=== PATIENT | female | born 1990 | race Caucasian/White ===

== ENCOUNTER → 2019-09-27 15:17 | Outpatient (CLI) | payer OTHER, SELFPAY ==
[2017-01-21 07:46] VITALS: BMI 31.0
[2019-09-29 18:08] LABS: HPV Reflexed? NOT INDICATED
== END ==
PROVIDERS: PCP Family Medicine; Referring Provider Obstetrics & Gynecology; Visit Provider Obstetrics & Gynecology
DX: Z12.4 Encounter for screening for malignant neoplasm of cervix (principal)
CPT/HCPCS: 88175; G0145

== ENCOUNTER 2023-02-03 11:02 | Emergency (ER) | payer OTHER, SELFPAY ==
[2023-02-03 11:04] VITALS: BP 108/97; PULSE 89; RESP 18; TEMP 36.2; O2SAT 100; BMI 33.3
--- NOTE | 2023-02-03 11:28 | EX.ED.DYSGE1 ---
HPI History of Present Illness Chief Complaint: Numb/Ting PFSH PFSH Home Medications folic acid 1 mg tablet 1 mg PO DAILY 01/21/17 [History Last Taken 01/20/17] vits,calcium no.78-iron fumarate-folic acid 29 mg-1 mg tablet (Prenatabs FA) 1 tab PO DAILY 01/21/17 [History Last Taken 01/20/17] Ibuprofen [Motrin] 800 mg PO TID PRN PRN pain or cramping #30 tabs 01/23/17 [Rx Last Taken Unknown] dibucaine 1 % topical ointment 1 applic topical 4X/DAY PRN PRN Pain #1 tube 01/24/17 [Rx Last Taken Unknown] Allergy/AdvReac Type Severity Reaction Status Date / Time No Known Allergies Allergy Verified 02/03/23 11:04 Social History Smoking Status: Never smoker EXAM Physical Exam Const Vital Signs: 02/03/23 11:04 Temperature 97.2 F L Temperature Source Temporal Pulse Rate 89 Respiratory Rate 18 Blood Pressure 108/97 H Blood Pressure Mean 100 Pulse Ox 100 Oxygen Delivery Method Room Air MDM MDM MDM Narrative Medical decision making narrative: ED attending note: I evaluated the patient in conjunction with the SHEYLA. I agree with his/her statements and above findings. I have personally performed a face to face assessment of the patient and have reviewed the SHEYLA Note. I performed a substantive portion of the visit including all aspects of the following. I personally saw the patient performed chart review, physical exam, reviewed labs, imaging (if obtained), and formulated a treatment and management plan. Brief history: 32-year-old female here with numbness and tingling left arm for 2 days as well as a headache. Exam: Nursing triage notes reviewed, Vital signs reviewed Constitutional: please see mdm HENT: MMM Eyes: Pupils equal round and reactive to light, Extraocular muscles intact, visual stubbs intact, visual acuity 25/20 bilaterally Neck: No stridor, no JVD, full neck ROM Lungs: Clear to auscultation, No wheezing or rales. No increased work of breathing, no conversational dyspnea, no accessory muscle use, no nasal flaring. No respiratory distress noted Heart: Regular rate and rhythm, No murmurs, No rubs and No gallops, 2+ distal pulses (radial, femoral, posterior tibial) in all extremities Abdomen: Soft, there is no tenderness, rigidity, rebound or guarding, no obvious peritoneal signs, no palpable pulsatile abdominal masses, no auscultated abdominal bruit : No CVAT Extremities: No edema Neuro: Alert and oriented x3, neuro exam at baseline, cranial nerves II through XII are intact. No pain with extraocular muscle movement. There is negative test of skew. 5 of 5 strength in upper and lower extremities in flexion extension. Intact sensation to light touch in upper and lower extremity dermatomes. No truncal or extremity ataxia. No dysdiadochokinesia. Normal gait. 2+ reflexes in upper and lower extremities. No meningeal signs. Negative Babinski. NIH of 0. Skin: No rash or lesions noted MDM/plan: Chief Complaint: Numbness tingling, headache External records reviewed: No recent [facility] imaging of the brain noted, no recent ED visits or hospitalizations noted in our medical record Factors affecting care: None Social determinants of health: none History obtained from others: The patient's Consults: None MDM narrative: The patient was hemodynamically stable, afebrile, nontoxic-appearing. No focal neurologic deficits noted on exam. NIH of 0 EKG with normal sinus rhythm, normal axis, normal intervals, no STEMI. I considered the following differential diagnosis: ICH, CVA, TIA, seizure, complex migraine CT scan of the head rule out bleed or mass. Clinically not consistent with CVA or seizure. Low suspicion for TIA given lack of risk factors such as age, hyperlipidemia hypertension. Will treat with migraine medicine. We will dispo based on results of CT scan and repeat neurologic assessment and shared decision making. CT scan is negative patient is appropriate for discharge home with close outpatient follow-up for possible outpatient MRI for further assessment Shared decision making: I will have a discussion with the patient and or visitors regarding risk/benefits of further testing or admission. They will be made aware of of the risk/benefits inherent in this decision they will be given the opportunity to voice understanding. Lab Data Labs: Laboratory Results - last 24 hr 02/03/23 12:20 WBC 6.5 RBC 5.35 Hgb 15.2 H Hct 46.3 MCV 86.5 MCH 28.4 MCHC 32.8 RDW Std Deviation 38.3 RDW Coeff of Boo 12.1 Plt Count 339 MPV 8.4 Immature Gran % (Auto) 0.200 Neut % (Auto) 73.1 H Lymph % (Auto) 20.0 [place] % (Auto) 6.3 Eos % (Auto) 0.2 Baso % (Auto) 0.2 Absolute Neuts (auto) 4.8 Absolute Lymphs (auto) 1.30 Nucleated RBC % 0 Sodium 137 Potassium 4.1 Chloride 105 Carbon Dioxide 29.0 Anion Gap 3 L BUN 10 Creatinine 0.79 Estim Creat Clear Calc 105.04 Est GFR (MDRD) Af Amer 109 Est GFR (MDRD) Non-Af 90 BUN/Creatinine Ratio 12.6 Glucose 104 Calcium 9.7 Urine Test Negative Radiography Diagnostic Testing: Clinical Impression(s) from Imaging Studies Brain CT 02/03/23 11:35 IMPRESSION: Normal unenhanced CT scan of the brain. Electronically Signed: Matthew Diallo MD at 12:49 EDT , Discharge Plan Triage Chief Complaint: Numb/Ting Other Complaint: Headache ED Midlevel Provider: Priscilla Begum ED Provider: Josef Mendez Dx/Rx/DC Orders Prescriptions: No Action folic acid 1 MG tablet 1 mg PO DAILY vit,[id number] [Prenatabs FA] 1 TABLET tablet 1 tab PO DAILY Ibuprofen [Motrin] 800 MG tablet 800 mg PO TID PRN PRN (Reason: pain or cramping) Qty: 30 1RF dibucaine 1 APPLIC ointment 1 applic topical 4X/DAY PRN PRN (Reason: Pain) Qty: 1 3RF Primary Care Provider: Care Physician,No Primary Referrals: Jonathan Suarez MD [Non-Staff] -
--- NOTE | 2023-02-03 11:35 | CT_ITS ---
STUDY: CT BRAIN WITHOUT CONTRAST REASON FOR EXAM: Female, 32 years old. Headache, visual deficit RADIATION DOSAGE (If Supplied By Facility): CTDIvol = ( 44.99 ) mGy, DLP = ( 745.49 ) mGycm TECHNIQUE: Transaxial CT imaging of the brain was performed without administration of intravenous contrast material. Individualized dose optimization techniques were used for this CT. COMPARISON: No relevant priors. FINDINGS: Normal soft tissue structures. Normal calvarium. Normal size ventricles and extra-axial spaces for the patient''s age. Normal white matter tracts of the cerebral hemispheres. Normal basal ganglia and thalami. Normal brainstem. Normal cerebellum. There is no intracranial hemorrhage. There are no findings of an acute ischemic infarction. Normal visualized paranasal sinuses. CT/Brain/Head without Contrast IMPRESSION: Normal unenhanced CT scan of the brain. Electronically Signed: Matthew Diallo MD at 12:49 EDT ,
--- NOTE | 2023-02-03 11:37 | EDS_ITS ---
HPI <LORENA Rodriguez - Last Filed: 02/03/23 14:11> History of Present Illness Chief Complaint: Numb/Ting Narrative Narrative: Patient presenting today due to a headache with visual field deficit that started yesterday. She reports that she does have a history of headaches but yesterday she noticed that her vision became blurry and the lateral stubbs of her vision seemed to be gone. She felt fatigued and lightheaded. This lasted for about 10 to 15 minutes and then resolved, she had about 3 or 4 episodes of this yesterday, all with a headache. She had 2 episodes of similar symptoms this morning. She reports that a similar episode occurred 6 months ago when she had a headache. She has never been evaluated for this. She also reports that her left upper arm has had pain and tingling constantly since Wednesday evening. She denies any head trauma, seizures, fevers, chills, abdominal pain, nausea, vomiting. PFSH <LORENA Rodriguez - Last Filed: 02/03/23 14:11> [facility] Home Medications folic acid 1 mg tablet 1 mg PO DAILY 01/21/17 [History Last Taken 01/20/17] vits,calcium no.78-iron fumarate-folic acid 29 mg-1 mg tablet (Prenatabs FA) 1 tab PO DAILY 01/21/17 [History Last Taken 01/20/17] Ibuprofen [Motrin] 800 mg PO TID PRN PRN pain or cramping #30 tabs 01/23/17 [Rx Last Taken Unknown] dibucaine 1 % topical ointment 1 applic topical 4X/DAY PRN PRN Pain #1 tube 01/24/17 [Rx Last Taken Unknown] Allergy/AdvReac Type Severity Reaction Status Date / Time No Known Allergies Allergy Verified 02/03/23 11:04 Social History Smoking Status: Never smoker ROS <LORENA Rodriguez - Last Filed: 02/03/23 14:11> ROS ED Constitutional Constitutional ED: Denies chills or fever(s) Eyes Eyes: Reports blurry vision and change in vision; Denies diplopia Cardiovascular Cardiovascular: Denies chest pain or palpitations Respiratory/Chest Respiratory/Chest: Denies cough or dyspnea Gastrointestinal Gastrointestinal: Denies abdominal pain, nausea or vomiting Musculoskeletal Musculoskeletal: Denies arthralgias or myalgias Integumentary Denies rash Neurologic Neurologic: Reports headache(s) and paresthesias LUE; Denies confusion, dizziness or weakness Psychiatric Psychiatric: Denies anxiety, depression, suicidal ideation or suicidal thoughts Allergic/Immunologic Allergic/Immunologic ED: Denies lip swelling, mouth swelling or urticaria EXAM <LORENA Rodriguez - Last Filed: 02/03/23 14:11> Physical Exam Const Vital Signs: 02/03/23 11:04 02/03/23 13:23 Temperature 97.2 F L Temperature Source Temporal Pulse Rate 89 Respiratory Rate 18 16 Blood Pressure 108/97 H Blood Pressure Mean 100 Pulse Ox 100 Oxygen Delivery Method Room Air Positive well nourished, well developed and no apparent distress General Appearance ED: well developed HEENT Reports normocephalic and head/scalp atraumatic Mouth ED: Yes moist mucous membranes normal Eyes PERRL and EOMs intact bilaterally Neck full ROM and supple Chest Wall inspection of chest normal Resp normal respiratory effort and clear to auscultation bilaterally Cardio regular rate and regular rhythm GI soft to palpation, non-tender, non-distended and no masses Back/Spine normal ROM and normal to inspection Extremity normal to inspection and full ROM Neuro oriented x3, CN's II-XII intact bilaterally, moves all extremities, no focal motor deficits and no sensory deficits noted Neuro Narrative: Normal visual field test Sensorium / Orientation: awake and alert Coordination / Balance: [id number] test normal and [id number] test normal Speech: speech normal Gait (Neuro): normal gait Motor Exam: strength 5/5 throughout and no pronator drift Psych mental status grossly normal and thought process normal Skin no rashes or lesions noted and no wounds <Dr. Josef Mendez DO - Last Filed: 02/03/23 12:10> Physical Exam Const Vital Signs: 02/03/23 11:04 02/03/23 13:23 Temperature 97.2 F L Temperature Source Temporal Pulse Rate 89 Respiratory Rate 18 16 Blood Pressure 108/97 H Blood Pressure Mean 100 Pulse Ox 100 Oxygen Delivery Method Room Air MDM <LORENA Rodriguez - Last Filed: 02/03/23 14:11> MDM MDM Narrative Medical decision making narrative: Patient presenting today due to a headache and visual field deficit that she had this morning and yesterday. Started with a headache and then the lateral portion of her vision bilaterally seemed to be cut, this lasted for about 10 to 15 minutes and then resolved. She had about 3 or 4 episodes yesterday with 2 episodes today. She had a similar single episode about 6 months ago that resolved. She has never been evaluated for this. She reports that she still does have a headache but her vision is normal and intact. She is well-appearing and in no acute distress, vitals are unremarkable. Head CT will be obtained to rule out intracranial abnormality. Her neuro exam is WNL, normal visual field testing, NIH is 0. Head CT is unremarkable, basic labs unremarkable. EKG is normal sinus rhythm. At this point, I do suspect that she is suffering from a complex migraine or ocular migraines, I have encouraged her to follow-up with a neurologist and I have given her a referral for one. She will be discharged home in stable condition and is comfortable with plan. ED attending note: I evaluated the patient in conjunction with the SHEYLA. I agree with his/her statements and above findings. I have personally performed a face to face assessment of the patient and have reviewed the SHEYLA Note. I performed a substantive portion of the visit including all aspects of the following. I personally saw the patient performed chart review, physical exam, reviewed labs, imaging (if obtained), and formulated a treatment and management plan. Brief history: 32-year-old female here with headache, blurry vision, left arm pain. Patient denies sudden onset or thunderclap headache, denies maximal intensity within 1 minute, vomiting, neck pain, stiffness, changes in vision, fever, history malignancy, syncope, or seizures associated with headache. Exam: Nursing triage notes reviewed, Vital signs reviewed Constitutional: please see mdm HENT: MMM Eyes: Pupils equal round and reactive to light, Extraocular muscles intact Neck: No stridor, no JVD, full neck ROM Lungs: Clear to auscultation, No wheezing or rales. No increased work of breathing, no conversational dyspnea, no accessory muscle use, no nasal flaring. No respiratory distress noted Heart: Regular rate and rhythm, No murmurs, No rubs and No gallops, 2+ distal pulses (radial, femoral, posterior tibial) in all extremities Abdomen: Soft, there is no tenderness, rigidity, rebound or guarding, no obvious peritoneal signs, no palpable pulsatile abdominal masses, no auscultated abdominal bruit : No CVAT Extremities: No edema Neuro: Neuro exam Skin: No rash or lesions noted MDM/plan: Chief Complaint: Headache External records reviewed: No recent advanced imaging of the brain Factors affecting care: None MDM narrative: The patient was hemodynamically stable, afebrile, nontoxic appearing. There are no meningeal signs on exam. No focal neurologic deficits. No visual field cuts. I suspect patient is suffering from a complex migraine but did obtain a CT scan to rule out intracranial mass bleed or other abnormality. Discussed risk and benefits of CT and disfluency. I considered the following differential diagnosis: ICH, SAH, MS, complex migraine CT scan showed Consults: None Shared decision making: I will have a discussion with the patient and or visitors regarding risk/benefits of further testing or admission. They will be made aware of of the risk/benefits inherent in this decision they will be given the opportunity to voice understanding. Lab Data Attestation: I reviewed the patient's lab results. Labs: Laboratory Results - last 24 hr 02/03/23 12:20 WBC 6.5 RBC 5.35 Hgb 15.2 H Hct 46.3 MCV 86.5 MCH 28.4 MCHC 32.8 RDW Std Deviation 38.3 RDW Coeff of Boo 12.1 Plt Count 339 MPV 8.4 Immature Gran % (Auto) 0.200 Neut % (Auto) 73.1 H Lymph % (Auto) 20.0 [place] % (Auto) 6.3 Eos % (Auto) 0.2 Baso % (Auto) 0.2 Absolute Neuts (auto) 4.8 Absolute Lymphs (auto) 1.30 Nucleated RBC % 0 Sodium 137 Potassium 4.1 Chloride 105 Carbon Dioxide 29.0 Anion Gap 3 L BUN 10 Creatinine 0.79 Estim Creat Clear Calc 105.04 Est GFR (MDRD) Af Amer 109 Est GFR (MDRD) Non-Af 90 BUN/Creatinine Ratio 12.6 Glucose 104 Calcium 9.7 Urine Test Negative Radiography Diagnostic Testing: Clinical Impression(s) from Imaging Studies Brain CT 02/03/23 11:35 IMPRESSION: Normal unenhanced CT scan of the brain. Electronically Signed: Matthew Diallo MD at 12:49 EDT , EKG Initial EKG: Comments: 77 bpm, normal sinus rhythm, no ST elevation, reviewed and interpreted by attending ED physician <Dr. Josef Mendez, DO - Last Filed: 02/03/23 12:10> [facility] Narrative Medical decision making narrative: Patient presenting today due to a headache and visual field deficit that she had this morning and yesterday. Started with a headache and then the lateral portion of her vision bilaterally seemed to be cut, this lasted for about 10 to 15 minutes and then resolved. She had about 3 or 4 episodes yesterday with 2 episodes today. She had a similar single episode about 6 months ago that resolved. She has never been evaluated for this. She reports that she still does have a headache but her vision is normal and intact. She is well-appearing and in no acute distress, vitals are unremarkable. Head CT will be obtained to rule out intracranial abnormality. Her neuro exam is WNL, normal visual field testing, NIH is 0. ED attending note: I evaluated the patient in conjunction with the SHEYLA. I agree with his/her statements and above findings. I have personally performed a face to face assessment of the patient and have reviewed the SHEYLA Note. I performed a substantive portion of the visit including all aspects of the following. I personally saw the patient performed chart review, physical exam, reviewed labs, imaging (if obtained), and formulated a treatment and management plan. Brief history: 32-year-old female here with headache, blurry vision, left arm pain. Patient denies sudden onset or thunderclap headache, denies maximal intensity within 1 minute, vomiting, neck pain, stiffness, changes in vision, fever, history malignancy, syncope, or seizures associated with headache. Exam: Nursing triage notes reviewed, Vital signs reviewed Constitutional: [facility] HENT: MMM Eyes: Pupils equal round and reactive to light, Extraocular muscles intact Neck: No stridor, no JVD, full neck ROM Lungs: Clear to auscultation, No wheezing or rales. No increased work of breathing, no conversational dyspnea, no accessory muscle use, no nasal flaring. No respiratory distress noted Heart: Regular rate and rhythm, No murmurs, No rubs and No gallops, 2+ distal pulses (radial, femoral, posterior tibial) in all extremities Abdomen: Soft, there is no tenderness, rigidity, rebound or guarding, no obvious peritoneal signs, no palpable pulsatile abdominal masses, no auscultated abdominal bruit : No CVAT Extremities: No edema Neuro: Neuro exam Skin: No rash or lesions noted MDM/plan: Chief Complaint: Headache External records reviewed: No recent advanced imaging of the brain Factors affecting care: None MDM narrative: The patient was hemodynamically stable, afebrile, nontoxic appearing. There are no meningeal signs on exam. No focal neurologic deficits. No visual field cut s. I suspect patient is suffering from a complex migraine but did obtain a CT scan to rule out intracranial mass bleed or other abnormality. Discussed risk and benefits of CT and disfluency. I considered the following differential diagnosis: ICH, SAH, MS, complex migraine CT scan showed Consults: None Shared decision making: I will have a discussion with the patient and or visitors regarding risk/benefits of further testing or admission. They will be made aware of of the risk/benefits inherent in this decision they will be given the opportunity to voice understanding. Lab Data Labs: Laboratory Results - last 24 hr 02/03/23 12:20 WBC 6.5 RBC 5.35 Hgb 15.2 H Hct 46.3 MCV 86.5 MCH 28.4 MCHC 32.8 RDW Std Deviation 38.3 RDW Coeff of Boo 12.1 Plt Count 339 MPV 8.4 Immature Gran % (Auto) 0.200 Neut % (Auto) 73.1 H Lymph % (Auto) 20.0 [place] % (Auto) 6.3 Eos % (Auto) 0.2 Baso % (Auto) 0.2 Absolute Neuts (auto) 4.8 Absolute Lymphs (auto) 1.30 Nucleated RBC % 0 Sodium 137 Potassium 4.1 Chloride 105 Carbon Dioxide 29.0 Anion Gap 3 L BUN 10 Creatinine 0.79 Estim Creat Clear Calc 105.04 Est GFR (MDRD) Af Amer 109 Est GFR (MDRD) Non-Af 90 BUN/Creatinine Ratio 12.6 Glucose 104 Calcium 9.7 Urine Test Negative Radiography Diagnostic Testing: Clinical Impression(s) from Imaging Studies Brain CT 02/03/23 11:35 IMPRESSION: Normal unenhanced CT scan of the brain. Electronically Signed: Matthew Diallo MD at 12:49 EDT , Discharge Plan Triage Chief Complaint: Numb/Ting Other Complaint: Headache ED Midlevel Provider: Priscilla Begum ED Provider: Josef Mendez Dx/Rx/DC Orders Clinical Impression: Changes in vision, Headache Instructions: ED, Migraine (Classical) Prescriptions: No Action folic acid 1 MG tablet 1 mg PO DAILY vit,[id number] [Prenatabs FA] 1 TABLET tablet 1 tab PO DAILY Ibuprofen [Motrin] 800 MG tablet 800 mg PO TID PRN PRN (Reason: pain or cramping) Qty: 30 1RF dibucaine 1 APPLIC ointment 1 applic topical 4X/DAY PRN PRN (Reason: Pain) Qty: 1 3RF Primary Care Provider: Care Physician,No Primary Referrals: Jonathan Hong MD [Non-Staff -Ordering Privileges] - 5-7 Days Jonathan Suarez MD [Non-Staff] - Activity Restrictions/Additional Instructions: Please follow-up with your PCP as well as the neurologist I have referred you to. Return for any worsening of your symptoms. Disposition Disposition: Home, Self Care Discharge Date/Time: 02/03/23 13:24
--- NOTE | 2023-02-03 11:58 | EKG12_ITS ---
Test Reason : GENERAL Blood Pressure : / mmHG Vent. Rate : 077 BPM Atrial Rate : 077 BPM P-R Int : 148 ms QRS Dur : 082 ms QT Int : 374 ms P-R-T Axes : 040 034 011 degrees QTc Int : 423 ms Normal sinus rhythm Normal ECG Confirmed by CRIS MARC, FORREST ([id number]), state editor LETICIA MEDINA ([id number]) on 02/09/2023 10:43:15 AM Referred By: Confirmed By:ANANDA LYNCH MD
--- NOTE | 2023-02-03 12:05 | NURSING ---
NO OLD EKG
[2023-02-03] MEDS: DiphenhydrAMINE 50 MG/ML Syringe 25 MG IV (12:17)
[2023-02-03] MEDS: Acetaminophen 325 MG Tablet 650 MG PO (12:17)
[2023-02-03] MEDS: Metoclopramide 10 MG/2 ML Vial 5 MG IV (12:18)
[2023-02-03] MEDS: 0.9% Normal Saline (1000mL) 1,000 ML 999 ML IV (12:19)
[2023-02-03 12:30] LABS: Absolute Neutrophil Count 4.8 X10^3/uL (2.0-7.7); Basophil# 0.01 X10^3/uL; Basophil% 0.2 % (0-1); Eosinophil# 0.01 X10^3/uL; Eosinophils% 0.2 % (0-5); Hematocrit 46.3 % (37-47); Hemoglobin 15.2 g/dL (12.0-15.0); Mean Corp Hgb Conc 32.8 g/dL (32-36); Mean Corpuscular Hgb 28.4 pg (27.0-32.0); Mean Corpuscular Volume 86.5 fL (81-99); Mean Platelet Vol. 8.4 fl (6.2-12.0); Monocyte# 0.41 X10^3/uL; Monocyte% 6.3 % (0-10); NRBC Flagged by Analyzer 0 % (0-5); Neutrophil # 4.76 X10^3/uL (2.7-7.7); Neutrophil % 73.1 % (47-70); Platelet Count 339 K/mm3 (150-450); RBC Distribution Width CV 12.1 % (11.6-14.6); RBC Distribution Width SD 38.3 fl (35.1-43.9); Red Blood Count 5.35 M/mm3 (4.2-5.4); White Blood Count 6.5 K/mm3 (4.4-11.0)
[2023-02-03 12:41] LABS: Anion Gap 3 (5-15); BUN 10 mg/dL (7-18); BUN/Creat Ratio 12.6 RATIO (10-20); Calcium,Total 9.7 mg/dL (8.5-10.1); Chloride 105 mmol/L (98-107); Creatinine, Serum 0.79 mg/dL (0.55-1.02); EST Glomerular Filtration Rate 90 mL/min (>60); Est Glom Filt Rate - Afr Amer 109 mL/min (>60); Estimated Creatinine Clearance 105.04 ml/min; Glucose 104 mg/dL (74-106); Potassium 4.1 mmol/L (3.5-5.1); Sodium Level 137 mmol/L (136-145)
[2023-02-03 12:43] LABS: Internal QC Validated? YES +Cl - CLEAR BKGD; Pregnancy, Urine Negative Negative
[2023-02-03] MEDS: Ketorolac 15 MG/ML Vial IV (13:20)
[2023-02-03 13:23] VITALS: RESP 16
== END 2023-02-03 13:24 | disposition home or self-care (01) ==
PROVIDERS: Physician Assistant; Emergency Provider Emergency Medicine; Visit Provider Emergency Medicine
DX: H53.40 Unspecified visual field defects (principal); R51.9 Headache, unspecified
CPT/HCPCS: 70450; 80048; 81025; 85025; 93005; 96361; 96374; 96375; 99284; J7030